=== PATIENT | male | born 2005 | race Caucasian/White ===

== ENCOUNTER 2024-07-28 18:39 | Emergency (ER) | payer OTHER, SELFPAY ==
[2024-07-28 18:44] VITALS: BP 128/61
--- NOTE | 2024-07-28 19:02 | ED.GENMED ---
Addendum entered and electronically signed by Lucila Ventura DO 07/29/24 02:18:
Update Note:
Attending Signout Note
20:30 - Patient signed out from preceding attending. 18-year-old male who had suicidal behavior several days ago, presenting for psych evaluation. Patient currently denies suicidal ideations, however to go to a psychiatric facility under 201. At
time of signout, pending placement. Patient resting comfortably in examination room with his father
22:30 -patient excepted to [facility]. Father notes that he will drive the patient there himself so he does not have to wait for transportation. He is adamant that he will take his son there. Feel stable for discharge.
-Lucila Ventura DO
Original Note:
History of Present Illness
General
Chief Complaint: Psychiatric Problem
Time Seen by Provider: 07/28/24 18:54
History of Present Illness
History of Present Illness:
Patient is a 18-year-old man with history of depression, ADHD presenting to the emergency department for crisis evaluation. Patient states that 2 days ago he was in [place] when he attempted to kill himself. He attempted to jump off a antoinette
but his parent and siblings pulled him off the antoinette. He states that this was a response to a verbal altercation that he had with his sister and he felt worthless. Since he has had time to reflect he does regret that decision. He denies any SI or
HI currently. He states that he does have a therapist though probably needs a new one. Has never been inpatient before. He does state that he is compliant his medications. Him and his dad did look at treatment centers however ultimately came
here for further help in finding the best option and level of care for patient. Patient has no medical complaints at this time. He does state that he in the past he has banged his head against the wall to hurt himself but is never attempted kill
himself. He denies any alcohol or drug use.
Past History
Social History
Tobacco: Non-smoker
Alcohol: None
Drug: None
Phy Exam
Physical Exam
Physical Exam:
GENERAL: in no acute distress
HEENT: normocephalic, extraocular movements intact, moist oral mucosa
NECK: normal inspection
RESPIRATORY: no respiratory distress
CARDIOVASCULAR: regular rate and rhythm
EXTREMITIES: non-tender, no edema/swelling
NEUROLOGIC: awake and alert, moves all extremities
Psych: Alert and oriented x 3, depressed mood and affect, speech normal not pressured, coherent thought process, not tangential, not currently suicidal or homicidal, cooperative and communicating, no active auditory or visual hallucinations, good
insight and judgement
SKIN: warm
Course
Orders/Labs/Results
Orders:
Orders
07/28/24 18:47
1:1 Observation - Suicide/ Violent Behavior As Directed
07/28/24 18:54
Crisis Consult Urgent
Reason for Consult: suicidal thoughts
07/28/24 20:14
Basic Metabolic Panel Urgent
Complete Blood Count/With Diff Urgent
Drug Screen, Urine [Urine Drug Abuse Screen] Urgent
Vital Signs
Initial and Last Documented VS:
Initial Vital Signs
Temp Pulse Resp BP Pulse Ox
98.5 F 66 18 128/61 100
07/28/24 18:44 07/28/24 18:44 07/28/24 18:44 07/28/24 18:44 07/28/24 18:44
Last Documented Vital Signs
Temp Pulse Resp BP Pulse Ox
98.5 F 66 18 128/61 100
07/28/24 18:44 07/28/24 18:44 07/28/24 18:44 07/28/24 18:44 07/28/24 18:44
MDM/Problems Addressed
Differential Diagnosis Includes:
Patient is a 18-year-old man presenting to the emergency department for crisis evaluation. On arrival here patient has no medical complaints. He is interested in voluntary placement at this time. Will discuss with crisis.
*Critical Care Note
Total Time (30-74mins, 75-104mins- exclusive of procedures): Not Applicable
Update Note
Update Note:
Crisis evaluated patient. He is voluntarily going at this time. They are requesting screening labs as well as UDS. Patient signed out to oncoming attending pending placement.
ED Attending Note
-
Portions of this chart may have been created with voice recognition software.� Occasional wrong word or��sound alike� substitutions may have occurred due to the inherent limitations of voice recognition software.
Discharge Plan
Departure
Patient Disposition: Psych Facility
Date of Disposition: 07/28/24
Time of Disposition: 20:15
Patient Status:: 201
Discharge Problem:
Suicidal thoughts
Prescriptions:
No Action
methylphenidate HCl [Concerta] 27 MG tablet extended release
36 mg PO DAILY
Patient Comments:
uses during school year
ibuprofen [Advil Liqui-Gel] 200 MG capsule
400 mg PO PRN PRN (Reason: migraine)
diphenhydramine HCl [Banophen] 25 MG capsule
25 mg PO PRN PRN (Reason: migraine)
vitamin B complex 1 TAB tablet
1 tab PO DAILY
ondansetron 4 MG tablet,disintegrating
4 mg PO Q8HPRN PRN (Reason: nausea/migraine)
rizatriptan 5 MG tablet
5 mg PO Q2HPRN PRN (Reason: migraine)
magnesium 200 MG tablet
200 mg PO DAILY
Vitamin D
1 tab PO DAILY
somatropin [Norditropin] 4 MG/VIAL recon soln
2 mg SQ DAILY
Interventions
Interventions:
*Risk Screen - Suicide Last Done: 07/28/24 18:46
Discharge Date and Time
Print Language: LAO
[2024-07-28 20:41] LABS: % Basophils 0.8 % (0-2); % Eosinophils 2.5 % (0-6); % Immature Granulocytes 0.3 % (0-0.5); % Lymphocytes 23.2 % (20.5-51.1); % Monocytes 9.3 % (1.7-9.3); % Neutrophils 63.9 % (42.2-75.2); Absolute Basophils 0.1 10^3/uL (0-0.2); Absolute Eosinophils 0.2 10^3/uL (0-0.7); Absolute Lymphocytes 1.8 10^3/uL (1.2-3.4); Absolute Monocytes 0.7 10^3/uL (0.1-0.6); Absolute Neutrophils 4.8 10^3/uL (1.4-6.5); Hematocrit 50.6 % (39.0-52.0); Mean Corp Hgb Conc. 33.6 g/dL (33.0-37.0); Mean Corpuscular Hgb 32.1 pg (27.0-31.0); Mean Corpuscular Volume 95.7 fL (80.0-94.0); Mean Platelet Volume 9.4 fL (7.4-10.4); Nucleated Red Blood Cells % 0 % (-); Platelet Count 216 10^3/uL (130-400); Red Blood Cell Count 5.29 10^6/uL (4.70-6.10); Red Cell Dist. Width 12.2 % (11.5-14.5); White Blood Cell Count 7.5 10^3/uL (4.8-10.8)
[2024-07-28 20:59] LABS: Blood Urea Nitrogen 17 mg/dl (9-20); Calcium 9.8 mg/dl (8.4-10.2); Carbon Dioxide 30 mmol/L (22-30); Chloride 98 mmol/L (98-107); Glucose 124 mg/dl (70-99); Potassium 4.2 mmol/L (3.5-5.1); Sodium 141 mmol/L (135-145); eGFR > 60.00
[2024-07-28 22:30] LABS: Amphetamines Negative (Negative); Barbiturates Negative (Negative); Benzodiazepines Negative (Negative); Buprenorphine Negative (Negative); Cocaine Negative (Negative); Methadone Negative (Negative); Methamphetamines Negative (Negative); Opiates Negative (Negative)
--- NOTE | 2024-07-28 22:30 | ED.GENMED ---
History of Present Illness
General
Chief Complaint: Psychiatric Problem
Time Seen by Provider: 07/28/24 18:54
Past History
Social History
Tobacco: Non-smoker
Alcohol: None
Drug: None
Course
Orders/Labs/Results
Orders:
Orders
07/28/24 18:47
1:1 Observation - Suicide/ Violent Behavior As Directed
07/28/24 18:54
Crisis Consult Urgent
Reason for Consult: suicidal thoughts
07/28/24 20:26
Basic Metabolic Panel Urgent
Complete Blood Count/With Diff Urgent
Drug Screen, Urine [Urine Drug Abuse Screen] Urgent
Date Specimen was Collected: 07/28/24
Time Specimen was Collected: 20:23
Abnormal Lab Results
07/28/24
20:26
MCV 95.7 H fL
(80.0-94.0)
MCH 32.1 H pg
(27.0-31.0)
Absolute Monos (auto) 0.7 H 10^3/uL
(0.1-0.6)
Glucose 124 H mg/dl
(70-99)
07/28/24 20:26
07/28/24 20:26
Vital Signs
Initial and Last Documented VS:
Initial Vital Signs
Temp Pulse Resp BP Pulse Ox
98.5 F 66 18 128/61 100
07/28/24 18:44 07/28/24 18:44 07/28/24 18:44 07/28/24 18:44 07/28/24 18:44
Last Documented Vital Signs
Temp Pulse Resp BP Pulse Ox
98.5 F 66 18 128/61 100
07/28/24 18:44 07/28/24 18:44 07/28/24 18:44 07/28/24 18:44 07/28/24 18:44
Update Note
Update Note:
Attending Signout Note
20:30 - Patient signed out from preceding attending. 18-year-old male who had suicidal behavior several days ago, presenting for psych evaluation. Patient currently denies suicidal ideations, however to go to a psychiatric facility under 201. At
time of signout, pending placement. Patient resting comfortably in examination room with his father
22:30 -patient excepted to [facility]. Father notes that he will drive the patient there himself so he does not have to wait for transportation. He is adamant that he will take his son there. Feel stable for discharge.
-Lucila Ventura, DO
ED Attending Note
-
Portions of this chart may have been created with voice recognition software.� Occasional wrong word or��sound alike� substitutions may have occurred due to the inherent limitations of voice recognition software.
Discharge Plan
Departure
Patient Disposition: Psych Facility
Date of Disposition: 07/28/24
Time of Disposition: 20:15
Patient Status:: 201
Discharge Problem:
Suicidal thoughts
Prescriptions:
No Action
methylphenidate HCl [Concerta] 27 MG tablet extended release
36 mg PO DAILY
Patient Comments:
uses during school year
ibuprofen [Advil Liqui-Gel] 200 MG capsule
400 mg PO PRN PRN (Reason: migraine)
diphenhydramine HCl [Banophen] 25 MG capsule
25 mg PO PRN PRN (Reason: migraine)
vitamin B complex 1 TAB tablet
1 tab PO DAILY
ondansetron 4 MG tablet,disintegrating
4 mg PO Q8HPRN PRN (Reason: nausea/migraine)
rizatriptan 5 MG tablet
5 mg PO Q2HPRN PRN (Reason: migraine)
magnesium 200 MG tablet
200 mg PO DAILY
Vitamin D
1 tab PO DAILY
somatropin [Norditropin] 4 MG/VIAL recon soln
2 mg SQ DAILY
Interventions
Interventions:
*Risk Screen - Suicide Last Done: 07/28/24 18:46
*General Assessment Last Done: 07/28/24 20:48
*Neglect/Abuse Screening Last Done: 07/28/24 20:48
*ED COVID-19 Vaccine History Last Done: 07/28/24 20:48
ED-Psychological Assessment Last Done: 07/28/24 20:48
Discharge Date and Time
Print Language: ARMENIAN
[2024-07-28 22:31] LABS: Marijuana Positive (Negative); Phencyclidine Negative (Negative); Tricyclic Antidepressants Negative (Negative)
== END 2024-07-28 22:45 ==
LOC: EMR 18:39
PROVIDERS: Student in an Organized Health Care Education/Training Program; EMERGENCY PHYSICIAN Student in an Organized Health Care Education/Training Program
DX: R45.851 Suicidal ideations (principal); F32.A Depression, unspecified; F90.9 Attention-deficit hyperactivity disorder, unspecified type; Z91.52 Personal history of nonsuicidal self-harm; Z88.8 Allergy status to other drugs, medicaments and biological substances; Z91.018 Allergy to other foods
CPT/HCPCS: 99285; 80048; 80306; 85025